=== PATIENT | female | born 1970 | race African-American/Black ===

== ENCOUNTER 2017-01-12 10:20 | Emergency (ER) | payer SELFPAY ==
[~2017-01-12] VITALS: Ht 177.8 cm; Wt 88.8 kg
[~2017-01-12 10:20] MED LIST: ACETTAB3 OR; AMOXICILLIN500 MG OR; AMOXICILLIN500 MG PO; ANUCORT-HC25 MG RE; BACTRIM DS1 TAB PO; CIPRO500 MG OR; COLACE100 MG PO; DENIES CURRENT MEDS; FERR SULFATE325 MG PO; FERRETTS325 MG PO; FERROUS SULF325 M1 PO; FERROUS SULFAT325 MG PO; FIORICE1 PO; FLAGYL500 MG OR; FLAGYL500 MG PO; FLEXERIL OR; IRON325 MG OR; LORTAB 5 OR; LORTAB 7.5-3251 TAB PO; MELOXICAM7.5 MG OR; MOTRIN800 MG PO; NAPROSYN500 MG OR; NAPROSYN500 MG PO; NEXIUM40 M1 PO; NO; NO HOME MEDS; PENICILLN VK500 MG OR; SLOW FE160 MG PO; ULTRAM50 M1 PO; ULTRAM50 MG OR; ZOFRAN ODT4 MG PO; [UNRECOGNIZED DRUG - REMARK] PO
[2017-01-12] MEDS ORDERED: MOTRIN800 MG PO (12:33)
[2017-01-12] MEDS ORDERED: TRAMADOL HYDROC50 MG PO (12:33)
[2017-01-12 12:50] VITALS: BP 120/75
== END 2017-01-12 12:50 | disposition home or self-care (01) | DRG 605 ==
LOC: ED 10:20
DX: S20.211A Contusion of right front wall of thorax, initial encounter (principal); F17.210 Nicotine dependence, cigarettes, uncomplicated; W01.198A Fall on same level from slipping, tripping and stumbling with subsequent striking against other object, initial encounter; Y92.002 Bathroom of unspecified non-institutional (private) residence as the place of occurrence of the external cause; Y99.9 Unspecified external cause status

== ENCOUNTER 2017-04-25 01:48 | Emergency (ER) | payer SELFPAY ==
[~2017-04-25] VITALS: Ht 177.8 cm; Wt 95.5 kg
[~2017-04-25 01:48] MED LIST changes: +TRAMADOL HYDROC50 MG PO
[2017-04-25] MEDS ORDERED: IBUPROFEN600 MG PO (03:11)
[2017-04-25 03:45] VITALS: BP 207/116
== END 2017-04-25 03:46 | disposition home or self-care (01) | DRG 605 ==
LOC: ED 01:48
DX: S40.021A Contusion of right upper arm, initial encounter (principal); S00.211A Abrasion of right eyelid and periocular area, initial encounter; F17.210 Nicotine dependence, cigarettes, uncomplicated; Y04.2XXA Assault by strike against or bumped into by another person, initial encounter

== ENCOUNTER 2018-09-02 21:50 | Emergency (ER) | payer SELFPAY ==
[~2018-09-02] VITALS: Ht 177.8 cm; Wt 87.1 kg
[~2018-09-02 21:50] MED LIST changes: +IBUPROFEN600 MG PO
[2018-09-02 22:43] LABS: HEMATOCRIT 37.6 % (37.0-47.0); HEMOGLOBIN 12.3 g/dl (12.0-16.0); IMMATURE GRANULOCYTES 0.2 % (0.0-5.0); MEAN CELL VOLUME 90.2 fL CALC (80.0-100.0); MEAN CORPUSCULAR HGB 29.5 pG CALC (26.0-32.0); MEAN CORPUSCULAR HGB CONC 32.7 g/L CALC (32.0-36.0); NEUT# 2.06 thou/uL (2.00-7.15); RED BLOOD COUNT 4.17 mill/uL (4.20-5.60); RED CELL DISTRI WIDTH 13.1 % (11.5-15.5)
[2018-09-02 23:04] LABS: ANION GAP 11 (6-22 (CALC)); BUN 12 mg/dL (7-17); BUN/CREATININE RATIO 17 (12-20 (CALC)); CARBON DIOXIDE 21 mmol/l (22-30); CHLORIDE 109 mmol/l (95-108); CREATININE 0.7 mg/dL (0.5-1.0); GFR > 60 ML/MIN (>=60 (CALC)); GFR FOR AFR.AMER. > 60 ML/MIN (>=60 (CALC)); POTASSIUM 3.3 mmol/l (3.5-5.1); SODIUM 138 mmol/l (137-146)
[2018-09-02 23:35] LABS: TSH, 3RD GENERATION 0.08 uIU/mL (0.47 - 4.68)
[2018-09-03 00:07] VITALS: BP 138/64
== END 2018-09-03 00:14 | disposition home or self-care (01) | DRG 641 ==
LOC: ED 21:50
PROVIDERS: Family Medicine
DX: E87.6 Hypokalemia (principal); R94.6 Abnormal results of thyroid function studies; R53.1 Weakness; R68.2 Dry mouth, unspecified

== ENCOUNTER 2019-02-12 16:31 | Emergency (ER) | payer SELFPAY ==
[~2019-02-12] VITALS: Ht 177.8 cm; Wt 97.0 kg
[2019-02-12 17:23] LABS: HEMATOCRIT 38.2 % (37.0-47.0); HEMOGLOBIN 12.6 g/dl (12.0-16.0); IMMATURE GRANULOCYTES 0.2 % (0.0-5.0); MEAN CORPUSCULAR HGB 29.4 pG CALC (26.0-32.0); NEUT# 1.6 thou/uL (2.00-7.15); RED BLOOD COUNT 4.29 mill/uL (4.20-5.60); RED CELL DISTRI WIDTH 13.4 % (11.5-15.5)
[2019-02-12 17:48] LABS: ALBUMIN 3.9 g/dL (3.2-5.0); ALKALINE PHOSPHATASE 60 u/l (38-126); ANION GAP 10 (6-22 (CALC)); BUN 12 mg/dL (7-17); BUN/CREATININE RATIO 17 (12-20 (CALC)); CARBON DIOXIDE 25 mmol/l (22-30); CHLORIDE 107 mmol/l (95-108); CREATININE 0.7 mg/dL (0.5-1.0); GFR > 60 ML/MIN (>=60 (CALC)); GFR FOR AFR.AMER. > 60 ML/MIN (>=60 (CALC)); POTASSIUM 3.5 mmol/l (3.5-5.1); SGOT/AST 16 u/l (14-36); SODIUM 138 mmol/l (137-146); TOTAL PROTEIN 7.4 g/dL (6.3-8.2)
[2019-02-12 17:52] LABS: BILIRUBIN, TOTAL 0.5 mg/dL (0.0-1.4)
[2019-02-12 18:00] LABS: MYOGLOBIN 45 ng/mL (0 - 62)
[2019-02-12 18:22] VITALS: BP 152/98
[2019-02-12] MEDS ORDERED: FLEXERIL PO (18:22)
[2019-02-12] MEDS ORDERED: NAPROXEN500 MG PO (18:22)
== END 2019-02-12 18:31 | disposition home or self-care (01) | DRG 313 ==
LOC: ED 16:31
PROVIDERS: Emergency Medicine
DX: R07.89 Other chest pain (principal); M79.18 Myalgia, other site

== ENCOUNTER 2019-04-18 23:11 | Emergency (ER) | payer SELFPAY ==
[~2019-04-18] VITALS: Ht 177.8 cm; Wt 94.4 kg
[~2019-04-18 23:11] MED LIST changes: +FLEXERIL PO; +NAPROXEN500 MG PO
[2019-04-18 23:59] LABS: HEMATOCRIT 40.8 % (37.0-47.0); HEMOGLOBIN 13.8 g/dl (12.0-16.0); IMMATURE GRANULOCYTES 0.2 % (0.0-5.0); MEAN CELL VOLUME 88.7 fL CALC (80.0-100.0); MEAN CORPUSCULAR HGB CONC 33.8 g/L CALC (32.0-36.0); NEUT# 1.47 thou/uL (2.00-7.15); RED BLOOD COUNT 4.6 mill/uL (4.20-5.60); RED CELL DISTRI WIDTH 12.8 % (11.5-15.5)
[2019-04-19 00:15] LABS: URINE BILIRUBIN - DIPSTICK SMALL (NEGATIVE); URINE BLOOD DIPSTICK NEGATIVE (NEGATIVE); URINE COLOR YELLOW; URINE GLUCOSE - DIPSTICK NEGATIVE (NEGATIVE); URINE KETONE NEGATIVE (NEGATIVE); URINE LEUK ESTERASE MODERATE (NEGATIVE); URINE NITRITE - DIPSTICK NEGATIVE (Negative); URINE PROTEIN - DIPSTICK NEGATIVE (NEG-TRACE); URINE SPECIFIC GRAVITY 1.025
[2019-04-19 00:16] LABS: URINE BACTERIA FEW hpf; URINE EPITHELIAL CELLS FEW EPI/hpf (0-FEW)
[2019-04-19 00:17] LABS: BARBITURATES NEGATIVE (NEGATIVE); COCAINE POSITIVE (NEGATIVE); METHADONE NEGATIVE (NEGATIVE); TETRAHYDROCANNABIONOL POSITIVE (NEGATIVE); TRICYLIC ANTIDEPRESSANTS NEGATIVE (NEGATIVE)
[2019-04-19 00:18] LABS: ALBUMIN 3.9 g/dL (3.2-5.0); ALKALINE PHOSPHATASE 68 u/l (38-126); ANION GAP 11 (6-22 (CALC)); BILIRUBIN, TOTAL 0.5 mg/dL (0.0-1.4); BUN 12 mg/dL (7-17); BUN/CREATININE RATIO 14 (12-20 (CALC)); CARBON DIOXIDE 23 mmol/l (22-30); CHLORIDE 107 mmol/l (95-108); CREATININE 0.8 mg/dL (0.5-1.0); GFR > 60 ML/MIN (>=60 (CALC)); GFR FOR AFR.AMER. > 60 ML/MIN (>=60 (CALC)); OXCYCODONE NEGATIVE (NEGATIVE); POTASSIUM 3.3 mmol/l (3.5-5.1); SGOT/AST 17 u/l (14-36); SODIUM 138 mmol/l (137-146); TOTAL PROTEIN 7.6 g/dL (6.3-8.2)
[2019-04-19 00:57] VITALS: BP 175/96
[2019-05-14] MEDS ORDERED: VOLTAREN - GENE75 MG PO (00:33)
== END 2019-04-19 00:40 | disposition home or self-care (01) | DRG 305 ==
LOC: ED 23:11
DX: I10 Essential (primary) hypertension (principal); F14.10 Cocaine abuse, uncomplicated

== ENCOUNTER 2019-05-13 | Emergency (ER) | payer SELFPAY ==
[2019-05-14] MEDS ORDERED: VOLTAREN - GENE75 MG PO ×2 (00:33)
== END 2019-05-14 00:50 | disposition home or self-care (01) | DRG 558 ==
DX: M77.9 Enthesopathy, unspecified (principal); F17.210 Nicotine dependence, cigarettes, uncomplicated

== ENCOUNTER 2020-01-27 10:22 | Emergency (ER) | payer SELFPAY ==
[~2020-01-27] VITALS: Ht 177.8 cm; Wt 78.0 kg
[~2020-01-27 10:22] MED LIST changes: +VOLTAREN - GENE75 MG PO
[2020-01-27 11:20] LABS: HEMATOCRIT 40.4 % (37.0-47.0); HEMOGLOBIN 13.3 g/dl (12.0-16.0); IMMATURE GRANULOCYTES 0.2 % (0.0-5.0); MEAN CELL VOLUME 91.2 fL CALC (80.0-100.0); MEAN CORPUSCULAR HGB CONC 32.9 g/dL CAL (32.0-36.0); NEUT# 2.29 thou/uL (2.00-7.15); RED BLOOD COUNT 4.43 mill/uL (4.20-5.60); RED CELL DISTRI WIDTH 13.2 % (11.5-15.5)
[2020-01-27 11:27] LABS: ALBUMIN 4.1 g/dL (3.2-5.0); ALKALINE PHOSPHATASE 72 u/l (38-126); ANION GAP 10 (6-22 (CALC)); BILIRUBIN, TOTAL 0.6 mg/dL (0.0-1.4); BUN 10 mg/dL (7-17); BUN/CREATININE RATIO 14 (12-20 (CALC)); CARBON DIOXIDE 26 mmol/l (22-30); CHLORIDE 106 mmol/l (95-108); CREATININE 0.7 mg/dL (0.5-1.0); GFR > 60 ML/MIN (>=60 (CALC)); GFR FOR AFR.AMER. > 60 ML/MIN (>=60 (CALC)); POTASSIUM 3.6 mmol/l (3.5-5.1); SGOT/AST 18 u/l (14-36); SODIUM 138 mmol/l (137-146); TOTAL PROTEIN 7.4 g/dL (6.3-8.2)
[2020-01-27 12:33] VITALS: BP 157/93
== END 2020-01-27 12:40 | disposition home or self-care (01) | DRG 313 ==
LOC: ED 10:22
PROVIDERS: Family Medicine
DX: R07.9 Chest pain, unspecified (principal)

== ENCOUNTER 2021-04-29 19:32 | Emergency (ER) | payer SELFPAY | END 2021-04-29 21:20 | disposition left against medical advice (07) | DRG 951 | LOC: ED 19:32 → LWOBS 21:20 | DX: Z53.21 Procedure and treatment not carried out due to patient leaving prior to being seen by health care provider (principal) ==

== ENCOUNTER 2021-07-16 12:25 | Emergency (ER) | payer SELFPAY ==
[2021-07-16 12:39] VITALS: BP 128/71
[2021-07-16 12:46] VITALS: BP 139/80
== END 2021-07-16 12:55 | disposition left against medical advice (07) | DRG 951 ==
LOC: ED 12:25
DX: Z91.19 Patient's noncompliance with other medical treatment and regimen (principal)

== ENCOUNTER 2021-07-17 08:45 | Emergency (ER) | payer SELFPAY ==
[2021-07-17] VITALS (16 sets, daily range): BP systolic 99–169; BP diastolic 79–105
[~2021-07-17] VITALS: Ht 177.8 cm; Wt 80.0 kg
[2021-07-17 09:54] LABS: URINE BILIRUBIN - DIPSTICK NEGATIVE (NEGATIVE); URINE BLOOD DIPSTICK NEGATIVE (NEGATIVE); URINE COLOR YELLOW; URINE GLUCOSE - DIPSTICK NEGATIVE (NEGATIVE); URINE KETONE NEGATIVE (NEGATIVE); URINE LEUK ESTERASE NEGATIVE (NEGATIVE); URINE NITRITE - DIPSTICK NEGATIVE (Negative); URINE PROTEIN - DIPSTICK TRACE mg/dL (NEG-TRACE); URINE SPECIFIC GRAVITY >=1.030; URINE UROBILINOGEN - DIPSTICK 0.2 E.U./dL (0.2)
[2021-07-17 10:00] LABS: HEMATOCRIT 40.1 % (37.0-47.0); HEMOGLOBIN 12.9 g/dl (12.0-16.0); IMMATURE GRANULOCYTES 0.2 % (0.0-5.0); MEAN CELL VOLUME 92.6 fL CALC (80.0-100.0); MEAN CORPUSCULAR HGB 29.8 pG CALC (26.0-32.0); MEAN CORPUSCULAR HGB CONC 32.2 g/dL CAL (32.0-36.0); NEUT# 6.09 thou/uL (2.00-7.15); RED BLOOD COUNT 4.33 mill/uL (4.20-5.60)
[2021-07-17 10:21] LABS: ALBUMIN 3.9 g/dL (3.2-5.0); ALKALINE PHOSPHATASE 76 u/l (38-126); ANION GAP 14 (6-22 (CALC)); BILIRUBIN, TOTAL 0.4 mg/dL (0.0-1.4); BUN 7 mg/dL (7-17); BUN/CREATININE RATIO 11 (12-20 (CALC)); CARBON DIOXIDE 21 mmol/l (22-30); CHLORIDE 108 mmol/l (95-108); CPK 96 u/l (30-165); CREATININE 0.7 mg/dL (0.5-1.0); ETHYL ALCOHOL 0 mg/dl (0-30); GFR > 60 ML/MIN (>=60 (CALC)); GFR FOR AFR.AMER. > 60 ML/MIN (>=60 (CALC)); LIPASE 22 u/l (23-300); MAGNESIUM 1.8 mg/dL (1.6-2.3); POTASSIUM 3.4 mmol/l (3.5-5.1); SGOT/AST 23 u/l (14-36); SODIUM 140 mmol/l (137-146); TOTAL PROTEIN 7.6 g/dL (6.3-8.2)
== END 2021-07-17 18:45 | disposition short-term general hospital (02) | DRG 101 ==
LOC: ED 08:45
PROVIDERS: Family Medicine
DX: R56.9 Unspecified convulsions (principal); S01.112A Laceration without foreign body of left eyelid and periocular area, initial encounter; W19.XXXA Unspecified fall, initial encounter; Z20.822 Contact with and (suspected) exposure to COVID-19

== ENCOUNTER 2021-08-01 13:22 | Emergency (ER) | payer SELFPAY ==
[~2021-08-01] VITALS: Ht 177.8 cm; Wt 96.0 kg
[2021-08-01 13:40] VITALS: BP 126/84
== END 2021-08-01 13:40 | disposition home or self-care (01) | DRG 951 ==
LOC: ED 13:22 → LWOBS 13:37
DX: Z53.21 Procedure and treatment not carried out due to patient leaving prior to being seen by health care provider (principal)

== ENCOUNTER 2021-09-26 09:48 | Emergency (ER) | payer SELFPAY | END 2021-09-26 16:18 | disposition left against medical advice (07) | DRG 951 | LOC: ED 09:48 → LWOBS 11:19 | DX: Z53.21 Procedure and treatment not carried out due to patient leaving prior to being seen by health care provider (principal) ==

== ENCOUNTER 2021-12-10 18:37 | Emergency (ER) | payer SELFPAY ==
[~2021-12-10] VITALS: Ht 177.8 cm; Wt 94.1 kg
[2021-12-10] VITALS (9 sets, daily range): BP systolic 107–128; BP diastolic 65–90
[2021-12-10] MEDS ORDERED: PREDNISONE20 MG PO (20:12)
== END 2021-12-10 20:27 | disposition home or self-care (01) | DRG 554 ==
LOC: ED 18:37
DX: M19.071 Primary osteoarthritis, right ankle and foot (principal)

== ENCOUNTER 2022-01-07 14:40 | Observation (INO) | payer OTHER ==
[~2022-01-07] VITALS: Ht 177.8 cm; Wt 72.2 kg
[2022-01-07] VITALS (22 sets, daily range): BP systolic 130–166; BP diastolic 83–133
[~2022-01-07 14:40] MED LIST changes: +PREDNISONE20 MG PO
[2022-01-07 15:10] LABS: HEMATOCRIT 41.6 % (37.0-47.0); HEMOGLOBIN 14.1 g/dl (12.0-16.0); IMMATURE GRANULOCYTES 0.2 % (0.0-5.0); MEAN CELL VOLUME 87.2 fL CALC (80.0-100.0); MEAN CORPUSCULAR HGB 29.6 pG CALC (26.0-32.0); MEAN CORPUSCULAR HGB CONC 33.9 g/dL CAL (32.0-36.0); NEUT# 2.12 thou/uL (2.00-7.15); RED BLOOD COUNT 4.77 mill/uL (4.20-5.60); RED CELL DISTRI WIDTH 12.9 % (11.5-15.5)
[2022-01-07 15:21] LABS: ALBUMIN 4.3 g/dL (3.2-5.0); ALKALINE PHOSPHATASE 82 u/l (38-126); BUN 9 mg/dL (7-17); BUN/CREATININE RATIO 16 (12-20 (CALC)); CHLORIDE 106 mmol/l (95-108); CREATININE 0.6 mg/dL (0.5-1.0); GFR FOR AFR.AMER. > 60 ML/MIN (>=60 (CALC)); GFR OTHER RACES > 60 ML/MIN (>=60 (CALC)); POTASSIUM 3.6 mmol/l (3.5-5.1); SGOT/AST 20 u/l (14-36); SODIUM 141 mmol/l (137-146); TOTAL PROTEIN 7.9 g/dL (6.3-8.2)
[2022-01-07 15:24] LABS: ANION GAP 13 (6-22 (CALC)); BILIRUBIN, TOTAL 0.7 mg/dL (0.0-1.4); CARBON DIOXIDE 26 mmol/l (22-30)
[2022-01-07 15:33] LABS: MYOGLOBIN 58 ng/mL (0 - 62)
[2022-01-08 00:24] VITALS: BP 135/79
[2022-01-08 05:30] VITALS: BP 142/78
[2022-01-08 07:01] LABS: HEMATOCRIT 36.8 % (37.0-47.0); HEMOGLOBIN 12.6 g/dl (12.0-16.0); IMMATURE GRANULOCYTES 0.2 % (0.0-5.0); MEAN CELL VOLUME 86.2 fL CALC (80.0-100.0); MEAN CORPUSCULAR HGB 29.5 pG CALC (26.0-32.0); MEAN CORPUSCULAR HGB CONC 34.2 g/dL CAL (32.0-36.0); NEUT# 1.38 thou/uL (2.00-7.15); RED BLOOD COUNT 4.27 mill/uL (4.20-5.60); RED CELL DISTRI WIDTH 12.7 % (11.5-15.5)
[2022-01-08 07:19] LABS: ANION GAP 12 (6-22 (CALC)); BUN 11 mg/dL (7-17); BUN/CREATININE RATIO 19 (12-20 (CALC)); CARBON DIOXIDE 23 mmol/l (22-30); CHLORIDE 108 mmol/l (95-108); CREATININE 0.6 mg/dL (0.5-1.0); GFR FOR AFR.AMER. > 60 ML/MIN (>=60 (CALC)); GFR OTHER RACES > 60 ML/MIN (>=60 (CALC)); POTASSIUM 3.6 mmol/l (3.5-5.1); SODIUM 139 mmol/l (137-146)
[2022-01-08] MEDS ORDERED: OMEPRAZOLE20 MG PO (11:20)
[2022-01-08] MEDS ORDERED: AMLODIPINE BESYL5 MG PO (11:20)
[2022-01-08 12:53] VITALS: BP 131/78
== END 2022-01-08 13:13 | disposition home or self-care (01) | DRG 305 ==
LOC: ED 14:40 → ED-I 18:00 → ED 18:13 → MS2 18:14
PROVIDERS: Internal Medicine; Nurse Practitioner; ADMIT Internal Medicine; ATTEND Internal Medicine
DX: I10 Essential (primary) hypertension (principal); F17.210 Nicotine dependence, cigarettes, uncomplicated; Z20.822 Contact with and (suspected) exposure to COVID-19

== ENCOUNTER 2022-01-21 14:40 | Emergency (ER) | payer OTHER ==
[~2022-01-21] VITALS: Ht 177.8 cm; Wt 76.0 kg
[~2022-01-21 14:40] MED LIST changes: +AMLODIPINE BESYL5 MG PO; +OMEPRAZOLE20 MG PO
[2022-01-21 14:59] VITALS: BP 118/83
[2022-01-21] MEDS ORDERED: AMOX/K CLAV875 M1 PO (15:42)
[2022-01-21] MEDS ORDERED: IBUPROFEN600 MG PO (15:42)
== END 2022-01-21 15:47 | disposition home or self-care (01) | DRG 159 ==
LOC: ED 14:40
DX: K08.89 Other specified disorders of teeth and supporting structures (principal); I10 Essential (primary) hypertension; G40.909 Epilepsy, unspecified, not intractable, without status epilepticus; F17.200 Nicotine dependence, unspecified, uncomplicated

== ENCOUNTER 2022-02-18 11:03 | Emergency (ER) | payer OTHER ==
[~2022-02-18] VITALS: Ht 177.8 cm; Wt 89.0 kg
[~2022-02-18 11:03] MED LIST changes: +AMOX/K CLAV875 M1 PO
[2022-02-18 11:15] VITALS: BP 151/104
== END 2022-02-18 12:08 | disposition home or self-care (01) | DRG 951 ==
LOC: LWOBS 11:03 → ED 11:03 → LWOBS 12:08
DX: Z53.21 Procedure and treatment not carried out due to patient leaving prior to being seen by health care provider (principal)

== ENCOUNTER 2022-03-21 06:10 | Emergency (ER) | payer OTHER ==
[~2022-03-21] VITALS: Ht 177.8 cm; Wt 93.0 kg
[2022-03-21 06:36] VITALS: BP 124/90
[2022-03-21 07:00] VITALS: BP 124/87
[2022-03-21 08:01] VITALS: BP 110/79
[2022-03-21] MEDS ORDERED: IBUPROFEN600 MG PO (08:25)
[2022-03-21 08:30] VITALS: BP 116/73
[2022-03-21 08:36] VITALS: BP 116/73
== END 2022-03-21 08:37 | disposition still patient (30) | DRG 556 ==
LOC: ED 06:10
DX: M79.641 Pain in right hand (principal); M79.632 Pain in left forearm; M89.9 Disorder of bone, unspecified

== ENCOUNTER 2022-04-22 10:05 | Emergency (ER) | payer OTHER ==
[2022-04-22] VITALS (9 sets, daily range): BP systolic 131–171; BP diastolic 83–138
[~2022-04-22] VITALS: Ht 177.8 cm; Wt 92.9 kg
[2022-04-22 10:37] LABS: BASO% 0.3 % (0-3); EOS% 3.1 % (0-8); HEMATOCRIT 37.7 % (37.0-47.0); HEMOGLOBIN 12.6 g/dl (12.0-16.0); MEAN CELL VOLUME 89.8 fL CALC (80.0-100.0); MEAN CORPUSCULAR HGB CONC 33.4 g/dL CAL (32.0-36.0); MONO% 9.4 % (2-13); NEUT# 1.6 thou/uL (2.00-7.15); NEUT% 27.2 % (42-76); RED BLOOD COUNT 4.2 mill/uL (4.20-5.60); RED CELL DISTRI WIDTH 13.6 % (11.5-15.5)
[2022-04-22 10:39] LABS: ALKALINE PHOSPHATASE 68 u/l (38-126); ANION GAP 11 (6-22 (CALC)); BILIRUBIN, TOTAL 0.6 mg/dL (0.0-1.4); BUN 11 mg/dL (7-17); BUN/CREATININE RATIO 20 (12-20 (CALC)); CARBON DIOXIDE 27 mmol/l (22-30); CHLORIDE 110 mmol/l (95-108); CREATININE 0.6 mg/dL (0.5-1.0); GFR FOR AFR.AMER. > 60 ML/MIN (>=60 (CALC)); GFR OTHER RACES > 60 ML/MIN (>=60 (CALC)); LIPASE 28 u/l (23-300); POTASSIUM 3.8 mmol/l (3.5-5.1); SGOT/AST 24 u/l (14-36); SODIUM 143 mmol/l (137-146); TOTAL PROTEIN 7.4 g/dL (6.3-8.2)
[2022-04-22] MEDS ORDERED: TRAMADOL HYDROC50 M1 PO (14:36)
[2022-04-22] MEDS ORDERED: PROTONIX40 M2 PO (14:36)
[2022-04-22] MEDS ORDERED: ZOFRAN4 MG/TAB PO (15:03)
== END 2022-04-22 15:12 | disposition home or self-care (01) | DRG 392 ==
LOC: ED 10:05
PROVIDERS: Family Medicine
DX: R10.13 Epigastric pain (principal)
CPT/HCPCS: Q9967

== ENCOUNTER 2022-09-12 18:59 | Emergency (ER) | payer SELFPAY ==
[~2022-09-12] VITALS: Ht 177.8 cm; Wt 93.0 kg
[~2022-09-12 18:59] MED LIST changes: +PROTONIX40 M2 PO; +TRAMADOL HYDROC50 M1 PO; +ZOFRAN4 MG/TAB PO
[2022-09-12] MEDS ORDERED: KEFLEX500 MG PO (20:51)
[2022-09-12] MEDS ORDERED: LORTAB 1010 MG PO ×2 (20:51→21:04)
[2022-09-12] MEDS ORDERED: BACTRIM DS1 TAB PO (20:51)
[2022-09-12 20:55] VITALS: BP 160/100
--- NOTE | 2022-09-14 13:17 | NUR ---
ATTEMPTED TO CONTACT PATIENT TO CHANGE ANTIBIOTIC BASED ON WOUND CULTURE RESULTS. PATIENT DID NOT ANSWER AND UNABLE TO LEAVE VOICEMAIL.
== END 2022-09-12 21:00 | disposition home or self-care (01) | DRG 395 ==
LOC: ED 18:59
PROC: 0D9Q3ZZ Drainage of Anus, Percutaneous Approach (ICD-10-PCS; principal; 2022-09-12)
DX: K61.0 Anal abscess (principal); G40.909 Epilepsy, unspecified, not intractable, without status epilepticus; I10 Essential (primary) hypertension; K21.9 Gastro-esophageal reflux disease without esophagitis; F17.200 Nicotine dependence, unspecified, uncomplicated

== ENCOUNTER 2023-01-30 11:28 | Emergency (ER) | payer SELFPAY ==
[~2023-01-30 11:28] MED LIST changes: +KEFLEX500 MG PO; +LORTAB 1010 MG PO
== END 2023-01-30 12:15 | disposition home or self-care (01) | DRG 951 ==
LOC: ED 11:28 → LWOBS 12:15 → ED 12:41
DX: Z53.21 Procedure and treatment not carried out due to patient leaving prior to being seen by health care provider (principal)

== ENCOUNTER 2023-04-21 12:59 | Emergency (ER) | payer SELFPAY | END 2023-04-21 14:57 | disposition left against medical advice (07) | DRG 951 | LOC: ED 12:59 → LWOBS 14:56 | DX: Z53.21 Procedure and treatment not carried out due to patient leaving prior to being seen by health care provider (principal) ==

== ENCOUNTER 2023-10-16 09:30 | Emergency (ER) | payer SELFPAY ==
[~2023-10-16] VITALS: Ht 177.8 cm; Wt 210.0 kg
[2023-10-16] VITALS (8 sets, daily range): BP systolic 102–148; BP diastolic 61–122
[2023-10-16] MEDS ORDERED: SODIUM CHLORIDE 0.9% 1,000 ML IV ONE (09:40)
[2023-10-16] MEDS ORDERED: KETOROLAC TROMETHAMINE 30 MG/ML SDV IV ONE (11:40)
[2023-10-16] MEDS ORDERED: NAPROXEN500 MG PO (11:57)
== END 2023-10-16 12:05 | disposition left against medical advice (07) | DRG 312 ==
LOC: ED 09:30
DX: R55 Syncope and collapse (principal); G40.909 Epilepsy, unspecified, not intractable, without status epilepticus; I10 Essential (primary) hypertension; F17.200 Nicotine dependence, unspecified, uncomplicated; Z53.29 Procedure and treatment not carried out because of patient's decision for other reasons

== ENCOUNTER 2023-10-16 12:09 | Emergency (ER) | payer SELFPAY ==
[~2023-10-16] VITALS: Ht 177.8 cm; Wt 100.0 kg
[2023-10-16 12:35] LABS: BASO% 0.2 % (0-3); EOS% 0.7 % (0-8); HEMATOCRIT 38.9 % (37.0-47.0); IMMATURE GRANULOCYTES 0.2 % (0.0-5.0); LYMPH% 47.6 % (15-41); MEAN CELL VOLUME 86.8 fL CALC (80.0-100.0); MEAN CORPUSCULAR HGB CONC 33.4 g/dL CAL (32.0-36.0); MONO% 7.2 % (2-13); NEUT# 2.53 thou/uL (2.00-7.15); NEUT% 44.1 % (42-76); RED BLOOD COUNT 4.48 mill/uL (4.20-5.60); RED CELL DISTRI WIDTH 12.1 % (11.5-15.5)
[2023-10-16 12:53] LABS: ALBUMIN 3.8 g/dL (3.2-5.0); BILIRUBIN, TOTAL 0.6 mg/dL (0.02-1.3); CREATININE 0.6 mg/dL (0.5-1.0); POTASSIUM 3.7 mmol/l (3.5-5.1); TOTAL PROTEIN 7.4 g/dL (6.3-8.2)
[2023-10-16 13:30] VITALS: BP 128/87
== END 2023-10-16 13:52 | disposition home or self-care (01) | DRG 312 ==
LOC: ED 12:09
PROVIDERS: Family Medicine
DX: R55 Syncope and collapse (principal); G40.909 Epilepsy, unspecified, not intractable, without status epilepticus; I10 Essential (primary) hypertension; K21.9 Gastro-esophageal reflux disease without esophagitis; F17.200 Nicotine dependence, unspecified, uncomplicated

== ENCOUNTER 2023-11-17 15:44 | Emergency (ER) | payer OTHER ==
[2023-11-17] VITALS (9 sets, daily range): BP systolic 119–154; BP diastolic 84–97
[~2023-11-17] VITALS: Ht 180.3 cm; Wt 86.2 kg
[2023-11-17 16:15] LABS: BASO% 0.1 % (0-3); EOS% 1.1 % (0-8); HEMATOCRIT 36.1 % (37.0-47.0); HEMOGLOBIN 12.3 g/dl (12.0-16.0); LYMPH% 54.5 % (15-41); MEAN CELL VOLUME 86.2 fL CALC (80.0-100.0); MEAN CORPUSCULAR HGB 29.4 pG CALC (26.0-32.0); MEAN CORPUSCULAR HGB CONC 34.1 g/dL CAL (32.0-36.0); MONO% 8.1 % (2-13); NEUT# 2.59 thou/uL (2.00-7.15); NEUT% 36.2 % (42-76); RED BLOOD COUNT 4.19 mill/uL (4.20-5.60); RED CELL DISTRI WIDTH 12.6 % (11.5-15.5)
[2023-11-17 16:26] LABS: ALBUMIN 3.5 g/dL (3.2-5.0); CREATININE 0.7 mg/dL (0.5-1.0); TOTAL PROTEIN 6.8 g/dL (6.3-8.2)
[2023-11-17 16:27] LABS: BILIRUBIN, TOTAL 0.9 mg/dL (0.02-1.3); POTASSIUM 2.8 mmol/l (3.5-5.1)
[2023-11-17] MEDS ORDERED: POTASSIUM CHLORIDE 20 MEQ/TAB PO ONE (17:40)
[2023-11-17] MEDS ORDERED: SODIUM CHLORIDE 0.9% 1,000 ML IV ONE (17:50)
[2023-11-17] MEDS ORDERED: POTASSIUM CHLORIDE 20 MEQ/PKT POWDER PO ONE (17:55)
[2023-11-17] MEDS ORDERED: POTASSIUM CHLORIDE 10 MEQ/TAB PO ONE ×4 (18:15→18:20)
[2023-11-17] MEDS ORDERED: LACTATED RINGER'S 1,000 ML IV ONE (19:05)
== END 2023-11-17 19:19 | disposition left against medical advice (07) | DRG 446 ==
LOC: ED 15:44
PROVIDERS: Family Medicine
DX: K80.20 Calculus of gallbladder without cholecystitis without obstruction (principal); R53.1 Weakness; E87.6 Hypokalemia; I10 Essential (primary) hypertension; G40.909 Epilepsy, unspecified, not intractable, without status epilepticus; K21.9 Gastro-esophageal reflux disease without esophagitis; F17.200 Nicotine dependence, unspecified, uncomplicated; Z53.29 Procedure and treatment not carried out because of patient's decision for other reasons
CPT/HCPCS: Q9967

== ENCOUNTER 2024-01-12 17:59 | Emergency (ER) | payer OTHER ==
[~2024-01-12] VITALS: Ht 180.3 cm; Wt 73.0 kg
[2024-01-12 18:08] VITALS: BP 131/87
[2024-01-12 18:15] VITALS: BP 122/85
[2024-01-12 18:26] LABS: BASO% 0.5 % (0-3); EOS% 1.5 % (0-8); HEMATOCRIT 31.9 % (37.0-47.0); IMMATURE GRANULOCYTES 0.3 % (0.0-5.0); LYMPH% 49.3 % (15-41); MEAN CELL VOLUME 88.4 fL CALC (80.0-100.0); MEAN CORPUSCULAR HGB 28.5 pG CALC (26.0-32.0); MEAN CORPUSCULAR HGB CONC 32.3 g/dL CAL (32.0-36.0); MONO% 6.8 % (2-13); NEUT# 2.55 thou/uL (2.00-7.15); NEUT% 41.6 % (42-76); RED BLOOD COUNT 3.61 mill/uL (4.20-5.60); RED CELL DISTRI WIDTH 14.7 % (11.5-15.5)
[2024-01-12 18:28] LABS: HEMOGLOBIN 10.3 g/dl (12.0-16.0)
[2024-01-12 18:35] VITALS: BP 124/85
[2024-01-12 18:45] VITALS: BP 132/90
[2024-01-12 18:50] LABS: ALBUMIN 3.6 g/dL (3.2-5.0); ALKALINE PHOSPHATASE 69 u/l (38-126); ANION GAP 8 (6-22 (CALC)); BUN 9 mg/dL (7-17); BUN/CREATININE RATIO 14 (12-20 (CALC)); CARBON DIOXIDE 24 mmol/l (22-30); CHLORIDE 109 mmol/l (95-108); CREATININE 0.6 mg/dL (0.5-1.0); ESTIMATED GFR 109 ML/MIN (>=90 (CALC)); POTASSIUM 3.3 mmol/l (3.5-5.1); SGOT/AST 18 u/l (14-36); SODIUM 138 mmol/l (137-146)
[2024-01-12 18:58] LABS: BILIRUBIN, TOTAL 0.5 mg/dL (0.02-1.3)
[2024-01-12 19:00] VITALS: BP 131/85
[2024-01-12] MEDS ORDERED: POTASSIUM CHLORIDE 20 MEQ/TAB PO ONE (19:05)
[2024-01-12 19:10] VITALS: BP 131/85
== END 2024-01-12 19:10 | disposition left against medical advice (07) | DRG 641 ==
LOC: ED 17:59
PROVIDERS: Family Medicine
DX: E87.6 Hypokalemia (principal); I10 Essential (primary) hypertension; G40.909 Epilepsy, unspecified, not intractable, without status epilepticus; K21.9 Gastro-esophageal reflux disease without esophagitis; F17.200 Nicotine dependence, unspecified, uncomplicated; Z53.29 Procedure and treatment not carried out because of patient's decision for other reasons